=== PATIENT | female | born 1980 | race Caucasian/White ===

== ENCOUNTER 2016-11-02 15:12 | Emergency (ER) | payer SELFPAY ==
[~2016-11-02] VITALS: Ht 170.2 cm; Wt 104.5 kg
[2016-11-02 15:22] VITALS: BP 148/99; PULSE 70; TEMP 99.3
[2016-11-02] MEDS ORDERED: PROZAC 10MG10 MG PO (15:24)
[2016-11-02] MEDS ORDERED: PRINZIDE 25 MG-1 TAB PO (15:25)
[2016-11-02] MEDS ORDERED: SYNTHROID0.075 MG/T PO (15:26)
[2016-11-02] MEDS ORDERED: NORVASC 10MG10 MG PO (15:26)
[2016-11-02] MEDS ORDERED: NORCO 325 MG-51 TAB PO (16:07)
== END 2016-11-02 16:57 | disposition home or self-care (01) ==
LOC: COL.ER 15:12
DX: M54.32 Sciatica, left side (principal); I10 Essential (primary) hypertension; E03.9 Hypothyroidism, unspecified; F17.210 Nicotine dependence, cigarettes, uncomplicated